=== PATIENT | female | born 1960 | race Two or more races ===

== ENCOUNTER 2024-06-04 17:44 | Emergency (ER) | payer MEDICARE ==
[~2024-06-04] VITALS: Ht 170.2 cm; Wt 62.1 kg
[2024-06-04 17:58] VITALS: TEMP 97.8
[2024-06-04 18:39] VITALS: BP 138/78; O2SAT 98
== END 2024-06-04 18:50 | disposition home or self-care (01) ==
LOC: ER 18:00
DX: M54.2 Cervicalgia (principal); M54.50 Low back pain, unspecified; V42.5XXA Car driver injured in collision with two- or three-wheeled motor vehicle in traffic accident, initial encounter; Y93.89 Activity, other specified; Y92.414 Local residential or business street as the place of occurrence of the external cause; Y99.8 Other external cause status